=== PATIENT | female | born 1970 | race Caucasian/White ===

== ENCOUNTER → 2025-05-12 | Outpatient (CLI) | payer MEDICARE, MEDICAID, SELFPAY ==
--- NOTE | 2025-05-12 | XR_ITS ---
Examination: PA lateral chest 2 views TECHNIQUE: Upright PA lateral chest 2 views Date and time: May 12, 2025 1220 hours, comparison August 02, 2023 INDICATIONS: Coughing 3 months. FINDINGS: Normal heart size. Lungs are clear. The osseous structures are intact IMPRESSION: No active disease
--- NOTE | 2025-05-12 | XR_ITS ---
Examination: Hand, left 3 views Technique: Hand AP, oblique, lateral 3 views Date and time of exam: May 12, 2025 1220 hours INDICATIONS: Left hand pain and swelling beginning 4 months ago. FINDINGS: Moderate juxta-articular bone demineralization. No fracture. Moderate osteoarthritis first carpometacarpal joint No erosive arthritis Mild osteoarthritis distal interphalangeal joints second through fifth digits and interphalangeal joint first digit IMPRESSION: Osteophyte arthritis as above, most prominent first carpometacarpal joint
[2025-05-12 13:19] LABS: Glucose Estimated Average 137 mg/dL (80-131); Hemoglobin A1C 6.4 % Hgb (4.8-6.0)
[2025-05-12 13:28] LABS: Anion Gap 7 (7-16); BUN/Creatinine Ratio 10 Ratio (12-20); Blood Urea Nitrogen 10 mg/dL (9-23); Calcium 9.7 mg/dL (8.3-10.6); Carbon Dioxide 30.0 mMol/L (20.0-31.0); Chloride 105 mMol/L (98-107); Creatinine (Component) 1.0 mg/dL (0.6-1.3); Glucose 102 mg/dL (74-106); Osmolality,Calculated 282 (275-295); Potassium 4.7 mMol/L (3.4-5.1); Sodium 142 mMol/L (136-145); eGFR > 60 See Note
[2025-05-13 11:38] LABS: Cocci Serology, IgM Positive (Negative)
[2025-05-13 11:39] LABS: Cocid Sro, CF/ID (UCD) NO CHG* See Sep Rpt
== END | disposition home or self-care (01) ==
LOC: CDIM 11:44 → COPL 12:35
PROVIDERS: Referring Provider Student in an Organized Health Care Education/Training Program; Visit Provider Radiology Diagnostic Radiology
DX: R05.9 Cough, unspecified (principal); M25.742 Osteophyte, left hand; E87.5 Hyperkalemia; R73.01 Impaired fasting glucose
CPT/HCPCS: 36415; 71046; 73130; 80048; 83036; 86635

== ENCOUNTER 2025-06-26 10:46 | Emergency (ER) | payer MEDICARE, MEDICAID, SELFPAY ==
[2025-06-26 10:56] VITALS: BP 153/90; PULSE 85; RESP 18; TEMP 36.8; O2SAT 97; BMI 26.0
--- NOTE | 2025-06-26 11:03 | EKG_ITS ---
[facility] Test Date: 2025-06-26 Pat Name: RENETTA FRAZIER Department: Room: - Gender: Female Shearing Shed Hand: : 1970 Requested By: Quentin Hernandez (ANN MARIE) Order Number: [id number] Reading MD: Quentin Hernandez ([employer]ER) Measurements Intervals [place] Rate: 76 P: 7 DC: 128 QRS: 44 QRSD: 83 T: 24 QT: 367 QTc: 414 Interpretive Statements SINUS RHYTHM Compared to ECG 05/08/2022 11:08:42 No significant changes /store/S0/[id number].pdf
--- NOTE | 2025-06-26 11:03 | XR_ITS ---
EXAMINATION: PA lateral chest 2 views TECHNIQUE: Upright PA lateral chest 2 views Date and time: June 26, 2025, 1105 hours INDICATIONS: Chest pain and coughing 3 months. FINDINGS: Normal heart size. Lungs are clear. The osseous structures are intact. IMPRESSION: No active disease
--- NOTE | 2025-06-26 11:03 | XR_ITS ---
Examination: CT chest, without intravenous contrast. Sagittal and coronal 2-D reconstructions. Exam date and time: June 26, 2025, 1143 hours INDICATIONS: Cough and shortness of breath beginning 3 months ago CTDI:vol (mGy) 10.6 DLP: (mGycm) 343 Technique: Multiple 3.0 mm axial sections of the chest to been obtained. Bone and lung density settings are obtained. Sagittal and coronal 2-D reconstructions have been obtained. Low dose protocols were performed. One or more of the following dose reduction techniques were used; automated exposure control, adjustment of the mA and/or KV according to patient size, use of iterative reconstruction technique. Findings: Thoracic aorta pulmonary arteries intact No mediastinal lymphadenopathy 4 mm pulmonary nodule posterior right lung image 152 No pneumonia or pulmonary edema No visualized perisplenic lesion No gallstones No hydronephrosis IMPRESSION: No pneumonia or pulmonary edema Recommend 6-month follow-up CT chest without contrast to document stability of 4 mm pulmonary nodule posterior right lung
--- NOTE | 2025-06-26 11:04 | EDRME_ITS ---
Rapid Medical Screening Exam FOR[facility] Arrival date/time: 06/26/25 10:46 55-year-old female presents emerged from today for complaints of cough and shortness of breath ongoing x 3 months. Patient had a positive coccidiomycosis test here in April labs were sent off to [facility] and confirm patient does not have valley fever Chief Complaint: Flu Like Symptoms Vital signs: Vital Signs Temperature 98.3 F 06/26/25 10:56 Pulse Rate 85 06/26/25 10:56 Respiratory Rate 18 06/26/25 10:56 Blood Pressure 153/90 H 06/26/25 10:56 Pulse Oximetry (%) 97 06/26/25 10:56 Oxygen Delivery Method Room Air 06/26/25 10:56 Vital signs reviewed by provider: Yes Exam: On exam patient does not appear ill or toxic no acute stress Patient does have mild increased work of breathing Clinical Impression: Lab work and imaging obtained
[2025-06-26 11:40] LABS: Basophils # (Auto) 0.1 Thou/mm3 (0.0-0.2); Basophils % (Auto) 1 % (0-2.5); Eosinophils # (Auto) 0.4 Thou/mm3 (0.0-0.5); Eosinophils % (Auto) 4 % (0-10); Hematocrit 42.7 % (36.0-46.0); Hemoglobin 13.7 g/dL (12.0-16.0); Immature Granulocytes Auto 0.04 Thou/mm3 (0.00-0.00); Lymphocytes # (Auto) 2.3 Thou/mm3 (1.0-4.8); Lymphocytes % (Auto) 24 % (10-50); Mean Corpuscular HGB Conc 32.1 g/dl (31.0-37.0); Mean Corpuscular Hemoglobin 29.5 pg (25.0-35.0); Mean Corpuscular Volume 92 fL (80-100); Monocytes # (Auto) 0.6 Thou/mm3 (0.0-0.8); Monocytes % (Auto) 6 % (0-12); Neutrophils # (Auto) 6.2 Thou/mm3 (1.8-7.7); Neutrophils % (Auto) 65 % (37-80); Nucleated Red Blood Cell # 0.00 Thou/mm3 (0.00-0.00); Nucleated Red Blood Cell % 0 /100 WBC (0); Platelet Count 230 Thou/mm3 (140-440); RDW Standard Deviation 44.9 fL (36.4-46.3); Red Blood Count 4.65 Miln/mm3 (4.00-5.20); White Blood Count 9.6 Thou/mm3 (3.6-11.0)
[2025-06-26 11:55] LABS: D-Dimer < 250 ng/mL (<600)
[2025-06-26 11:56] LABS: Alanine Aminotransferase 26 U/L (10-49); Albumin, Serum 4.8 gm/dL (3.5-5.0); Albumin/Globulin Ratio 2.3 (1.2-2.2); Alkaline Phosphatase 69 U/L (46-116); Anion Gap 7 (7-16); Aspartate Amino Transferase 25 U/L (0-34); BUN/Creatinine Ratio 12 Ratio (12-20); Bilirubin,Total 0.2 mg/dL (0.3-1.2); Blood Urea Nitrogen 12 mg/dL (9-23); Calcium 9.9 mg/dL (8.3-10.6); Calcium (Corrected) 9.9 mg/dL (8.5-10.1); Carbon Dioxide 29.9 mMol/L (20.0-31.0); Chloride 103 mMol/L (98-107); Creatinine (Component) 1.0 mg/dL (0.6-1.3); Estimated Creatinine Clearance 62.1 mL/min (>60); Globulin 2.1 gm/dL (2.3-3.5); Glucose 119 mg/dL (74-106); Osmolality,Calculated 280 (275-295); Potassium 5.2 mMol/L (3.4-5.1); Sodium 140 mMol/L (136-145); Total Protein 6.9 gm/dL (5.7-8.2); Troponin I < 0.002 ng/mL (0.0-0.045); eGFR > 60 See Note
[2025-06-26 12:22] LABS: Influenza A Ag Negative; Influenza B Ag Negative
--- NOTE | 2025-06-26 13:57 | PD.EDURI ---
Upper Respiratory Inf. RME/HPI General Chief Complaint: Flu Like Symptoms Stated Complaint: Cough X 3 months, fever Time Seen by Provider: 06/26/25 11:08 Arrival date/time: 06/26/25 10:46 55-year-old female patient came in for evaluation regarding chronic cough. Patient been having cough especially in the morning with the patient woke up with a lot of mucus according to her. Associated with throat discomfort. Patient also complained of chest tightness in the morning. Been ongoing for 3 months. Denies any fever denies any other complaints. No medication was taken prior to ER visit. RME / HPI RME / HPI Narrative: 06/26/25 10:46 55-year-old female presents emerged from today for complaints of cough and shortness of breath ongoing x 3 months. Patient had a positive coccidiomycosis test here in April labs were sent off to [facility] and confirm patient does not have valley fever Exam: On exam patient does not appear ill or toxic no acute stress Patient does have mild increased work of breathing Impression: Lab work and imaging obtained Related Data Home Medications ?Medication ?Instructions ?Recorded ?Confirmed bupropion HCl 300 mg 24 hr tablet, 1 tab PO QDAY 05/09/22 02/11/24 extended release gabapentin 800 mg tablet 1 tab PO TID 05/09/22 02/11/24 hydrocodone 10 mg-acetaminophen 1 tab PO [id number] PRN Pain 05/09/22 02/11/24 325 mg tablet Held on 02/11/24. Instructions: Resume on 02/12/24. quetiapine 50 mg tablet 50 mg PO HS 05/09/22 02/11/24 tizanidine 4 mg tablet 1 tab PO HS 05/09/22 02/11/24 buspirone 15 mg tablet 15 mg PO QDAY 02/11/24 02/11/24 doxycycline hyclate 100 mg tablet 100 mg PO QDAY 02/11/24 02/11/24 fluoxetine 40 mg capsule 40 mg PO QDAY 02/11/24 02/11/24 meclizine 25 mg tablet 25 mg PO QDAY 02/11/24 02/11/24 montelukast 10 mg tablet 10 mg PO QDAY 02/11/24 02/11/24 omeprazole 20 mg tablet,delayed 20 mg PO QDAY 02/11/24 02/11/24 release Previous Rx's ?Medication ?Instructions ?Recorded pantoprazole 40 mg tablet,delayed 40 mg PO BID #30 tabs 06/26/25 release (Protonix) Allergies Allergy/AdvReac Type Severity Reaction Status Date / Time ibuprofen (From Motrin) Allergy Rash Verified 06/26/25 10:52 Review of Systems Review of Systems Narrative Review of Systems: Review of system reviewed and within normal limits except mentioned in HPI ED Exam Narrative Physical exam: VITAL SIGNS: Reviewed. GENERAL APPEARANCE: Alert and interactive, follows commands, no acute distress, HEAD AND FACE: Non-traumatic. ENT: PERRL, pink conjunctivitis, eyelid no trauma, Mucous membrane moist. NECK: Supple, nontender, no nuchal rigidity. CHEST: No tenderness, no crepitus, no paradoxical movement, no retractions. LUNGS: Clear, well ventilated, symmetric, no rales, no wheezing, no ronchi, no stridor, good breath sounds bilaterally. HEART: Regular rate, regular rhythm, no murmur, no gallops. ABDOMEN: Soft, positive bowel sounds, nondistended, no guarding, nontender, no rebound, no masses, RECTAL: Deferred. GENITAL: Deferred. NEUROLOGICAL: Gross motor function intact sensory function intact, Appropriate for age. MUSCULOSKELETAL: low back nontender, full range of motion. EXTREMITIES: Nontender, full range of motion. SKIN: Color pink, dry, no rash, no lacerations, no abrasions, no contusions. LYMPHATICS: Deferred. Course Quality Measures none Orders Category Date Time Status Bedside COVID-19 Antigen Test NOW Care 06/26/25 11:37 Active EKG (ED ONLY) *Do not use* NOW Care 06/26/25 11:[address] chest wo con Stat Exams 06/26/25 11:03 Completed EKG (ED Only) Stat Exams 06/26/25 11:03 Draft XR chest 2V Stat Exams 06/26/25 11:03 Completed CBC Stat Lab 06/26/25 11:21 Completed Comprehensive Metabolic Panel Stat Lab 06/26/25 11:21 Completed D-Dimer Stat Lab 06/26/25 11:21 Completed Influenza A & B Rapid Panel Stat Lab 06/26/25 11:41 Completed Troponin I Stat Lab 06/26/25 11:21 Completed Vital Signs Vital signs: Vital Signs Temperature 98.3 F 06/26/25 10:56 Pulse Rate 85 06/26/25 10:56 Respiratory Rate 18 06/26/25 10:56 Blood Pressure 153/90 H 06/26/25 10:56 Pulse Oximetry (%) 97 06/26/25 10:56 Oxygen Delivery Method Room Air 06/26/25 10:56 Upper Respiratory Infection [facility] Narrative [facility] Narrative:: 55-year-old female patient came in for evaluation regarding chronic cough. Patient been having cough especially in the morning with the patient woke up with a lot of mucus according to her. Associated with throat discomfort. Patient also complained of chest tightness in the morning. Been ongoing for 3 months. Denies any fever denies any other complaints. No medication was taken prior to ER visit. Patient's workup today all came back unremarkable including normal CT scan of the chest except for for him pulmonary nodule. Patient was given her CT scan results. Instructed follow-up closely with PCP for repeat CT scan of the chest. Patient agrees with the plan. Patient will be sent home on Protonix which could be the reason why the patient is waking up in the morning with nasal congestion and chest discomfort. Stable for discharge home Patient data External records reviewed:: None Clinical information provided by:: patient Social determinants that could affect healthcare access:: none Patient has the following chronic illnesses:: None How is presenting disease/condition affected by chronic disease/condition?: no chronic disease Evaluation data The following diagnostics were reviewed and interpreted by me:: lab results, radiology exam(s) and EKG tracing(s) Lab and/or radiology exams considered but not ordered:: None Interpretation Summary: See results in [facility] EKG showed normal sinus rhythm, ventricular rate of 86 bpm, no ST segment elevation or depression noted as interpreted by me and My ED MD Medications / Prescriptions Medications or Prescriptions considered but not ordered:: None none Medication administrations:: None Consultations Consultation(s) initiated? (list below): No Diagnosis Upper Respiratory Differential Diagnosis: upper respiratory infection, viral infection and bronchitis Most likely diagnosis given after review of the tests above:: Chronic cough Admission Indicated Admission indicated?: not indicated Admission Request Was there a request for admission?: No Disposition Plan Disposition Plan: Discharge Discharge Attestation Discharge Attestation: The patient was given an opportunity to ask questions and understood the discharge instructions. Discharge instructions specifically effects, indications for sooner follow up or return to the emergency department, and the expected course of current diagnosis. Patient condition: Stable Discharge Plan Plan Patient Disposition: HOME (Self Care) Discharge Disposition comment: Stable Prescriptions/Referrals Prescriptions/Med Rec: New pantoprazole [Protonix] 40 mg tablet,delayed release (DR/EC) 40 mg PO BID Qty: 30 0RF No Action tizanidine 4 mg tablet 1 tab PO HS hydrocodone-acetaminophen 10-325 mg tablet 1 tab PO [id number] [id number] (Reason: Pain) Patient Comments: TAKE 1/2 TABLET BY MOUTH EVERY 6 HOURS NEEDED bupropion HCl 300 mg tablet extended release 24 hr 1 tab PO QDAY Patient Comments: TAKE 1 TABLET BY MOUTH DAILY quetiapine 50 mg tablet 50 mg PO HS Patient Comments: TAKE 2 TABLETS BY MOUTH AT NIGHT gabapentin 800 mg tablet 1 tab PO TID fluoxetine 40 mg capsule 40 mg PO QDAY meclizine 25 mg tablet 25 mg PO QDAY Patient Comments: TAKE 1 TABLET BY MOUTH EVERY 12 HOURS NEEDED FOR DIZZINESS montelukast 10 mg tablet 10 mg PO QDAY Patient Comments: TAKE 1 TABLET BY MOUTH 1 TIME A DAY doxycycline hyclate 100 mg Tablet 100 mg PO QDAY buspirone 15 mg tablet 15 mg PO QDAY Patient Comments: TAKE 1 TABLET BY MOUTH TWICE DAILY omeprazole 20 mg Tablet,Delayed Release (Dr/Ec) 20 mg PO QDAY Referrals: No Primary/Family,Physician [Primary Care Provider] - In 1 week Problem List Clinical Impression: Chronic cough Patient/Caregiver Discharge Instructions Discharge Activity: activity as tolerated Education Materials: ED Cough Chronic Uncertain Cause Adult Additional Instructions: Thank you for the opportunity for serving you today. You are stable for discharged . You are advised to: Follow-up with your PCP in 1 to 2 days Return to ED for worsening of symptoms Increase oral fluids Take medication as prescribed Stop your omeprazole. As your PCP to repeat your CT scan of the chest regarding your pulmonary nodule in 3-6 months. Print Language: Japanese Stand Alone Forms: Vi Award Info., Patient Portal Info Letter PA/DAVID Supervising Physician VICTOR HUGO/DAVID Supervising Physician: MD Sumaya
== END 2025-06-26 14:15 | disposition home or self-care (01) ==
PROVIDERS: Nurse Practitioner Primary Care; Emergency Provider Emergency Medicine
DX: R05.3 Chronic cough (principal)
CPT/HCPCS: 36415; 71046; 71250; 80053; 84484; 85025; 85379; 87502; 87811; 93005; 99283